=== PATIENT | female | born 1975 | race Caucasian/White ===

== ENCOUNTER 2018-02-23 09:42 | Observation (INO) ==
[2018-02-23] MEDS ORDERED: Isovue-370 500 ML INFUS..BTL IV ONE (10:00)
[2018-02-23 10:20] LABS: Bilirubin,Urine Negative (Negative); Blood,Urine Large (Negative); Clarity,Urine Cloudy (Clear); Color,Urine Yellow (Yellow); Glucose,Urine (UA) Normal (Normal); Ketones,Urine Trace mg/dL (Negative); Leukocyte Esterase,Urine Negative (Negative); Nitrite,Urine Negative (Negative); PH,Urine 6.5 pH Units (5.0-8.0); Protein,Urine 30 mg/dL (Neg-Trace); Specific Gravity,Urine > 1.030 (1.010-1.025); Urobilinogen,Urine Normal (Normal)
[2018-02-23 10:25] LABS: Bacteria,Urine None Seen per hpf (None-Few); Hyaline Casts,Urine None Seen per lpf (None-Few); RBC,Urine TNTC per hpf (0-3); Squamous Epithelial Cell,Urine Many per lpf (None-Few); WBC,Urine 0-3 per hpf (0-3)
[2018-02-23 10:26] LABS: Basophils # 0.1 K/mcL (0.0-0.2); Basophils % 0.9 %; Eosinophils # 0.4 K/mcL (0.0-0.6); Eosinophils % 6.2 %; Hematocrit 40.7 % (35.3-44.9); Hemoglobin 14.1 g/dL (11.5-15.4); Immature Granulocytes % 0.2 % (0-4); Lymphocytes % 30.9 %; Mean Corpuscular HGB Conc 34.6 g/dL (31.6-35.5); Mean Corpuscular Hemoglobin 31.1 pg (28.0-33.3); Mean Corpuscular Volume 89.8 fL (83.0-100.0); Mean Platelet Volume 11.4 fL (9.4-12.4); Monocytes # 0.3 K/mcL (0.0-1.3); Monocytes % 5.1 %; Neutrophils # 3.7 K/mcL (1.6-8.9); Platelet Count 207 K/mcL (140-400); Red Blood Count 4.53 M/mcL (3.82-4.97); Red Cell Distribution Width 11.8 % (11.5-14.5); Segmented Neutrophils % 56.7 %
[2018-02-23 10:51] LABS: Alanine Aminotransferase 10 Units/L (7-52); Albumin 4.4 g/dL (3.5-5.7); Albumin/Globulin Ratio 2.1 (1.1-2.2); Alkaline Phosphatase 51 Units/L (34-104); Aspartate Amino Transferase 11 Units/L (13-39); BUN/Creatinine Ratio 16 (6-26); Bilirubin,Direct 0.1 mg/dL (0.0-0.2); Bilirubin,Indirect 0.2 mg/dL (0.0-1.2); Bilirubin,Total 0.3 mg/dL (0.3-1.0); Blood Urea Nitrogen 18 mg/dL (6-20); Calcium 8.7 mg/dL (8.6-10.3); Carbon Dioxide 26 mEq/L (23-29); Chloride 108 mEq/L (98-107); Globulin 2.1 g/dL (2.4-3.5); Glucose 95 mg/dL (70-105); Lipase 37 Units/L (11-82); Osmolality,Calculated 290 (280-300); Potassium 3.9 mEq/L (3.5-5.1); Sodium 139 mEq/L (136-145); Total Protein 6.5 g/dL (6.4-8.9); Troponin I < 0.03 ng/mL (< 0.04); eGFR For African Americans > 60 (> 60); eGFR For Non-African Americans 52 (> 60)
[2018-02-23] MEDS ORDERED: *HR* FentaNYL (PF) 100 MCG/2 ML VIAL IVP ONE (12:24)
--- NOTE | 2018-02-23 13:34 | Emergency Department Note ---
Disposition Clinical Impression: Abdominal pain Qualifiers: Abdominal location: right upper quadrant Qualified Code(s): R10.11 - Right upper quadrant pain Disposition: Admitted As Inpatient Condition: Fair Abdominal Pain HPI - General Chief Complaint: ED Abdominal Pain Stated Complaint: ABD pain Time Seen by Provider: 02/23/18 09:54 Source: patient Mode of arrival: ambulatory Limitations: no limitations Nursing Notes Reviewed: Yes Vital Signs Reviewed: Yes - History of Present Illness HPI Narrative: 43-year-old female presents emergency Department with concerns of right upper quadrant abdominal pain. Patient states pain in the right upper quadrant started within the past 24 hours and has progressively worsened. Patient has a history of cholelithiasis however she has not had acute cholecystitis in the past. Patient denies vomiting or diarrhea. Pain Scale: 7 - Related Data Home Medications Medication Instructions Recorded Confirmed No Known Home Drugs 02/23/18 02/23/18 Allergies Allergy/AdvReac Type Severity Reaction Status Date / Time No Known Allergies Allergy Verified 02/23/18 09:52 All systems ED: reviewed and negative except as stated. Review of Systems: As Per HPI Abdominal Pain PMH - Past Medical History Medical history: Reports: other Female Surgical History: Reports: other RECRUITER MANAGER history: Reports: no RECRUITER MANAGER history Psychiatric history: Reports: no psych history - Social History Smoking status: Current every day smoker Alcohol use: Reports: none Drug use: Reports: none Physical Exam General: Alert and in no acute distress Skin: Warm, dry, intact Head: Normocephalic and atraumatic Neck: Supple, trachea midline and no tenderness Cardiovascular: RRR, no murmur, normal perfusion Respiratory: CTAB, no wheezing, cough, or respiratory distress Musculoskeletal: Normal strength, no tenderness, swelling or deformity GI: Soft, tenderness to palpation to right upper quadrant without evidence of rigidity or guarding. nondistended. Bowel sounds present Neuro: A&O to person, place, time and situation. No focal deficits noted on exam Psychiatric: cooperative and appropriate mood and affect. - General Limitations: no limitations General appearance: alert, in no apparent distress Course Vital Signs Temperature 97.9 F 02/23/18 09:49 Pulse Rate 67 02/23/18 09:49 Respiratory Rate 16 02/23/18 09:49 Blood Pressure 131/70 02/23/18 09:49 O2 Sat by Pulse Oximetry 98 02/23/18 09:49 Temperature 97.9 F 02/23/18 15:44 Pulse Rate 55 02/23/18 15:44 Respiratory Rate 15 02/23/18 15:44 Blood Pressure 110/66 02/23/18 15:44 O2 Sat by Pulse Oximetry 98 02/23/18 15:44 Oxygen Delivery Oxygen Delivery Room Air Abdominal Pain - MDM Narrative Medical decision making narrative: CT of the abdomen and pelvis showed possible pericholecystic fluid. Radiologist recommends HIDA scan. Patient was evaluated by the surgical nurse practitioner who then spoke with the attending. They requested a HIDA scan be performed prior to further surgical evaluation. I am unable to obtain a HIDA scan immediately in the emergency department. Patient will be admitted to the hospital for pain control and further evaluation of her abdominal pain. - Medical Records Medical records reviewed: Yes I reviewed the patient's medical records. - Lab Data Lab results reviewed: Yes I reviewed the patient's lab results. Result diagrams: 02/23/18 10:13 02/23/18 10:13 Lab Results 02/23/18 02/23/18 02/23/18 Range/Units 09:52 10:02 10:13 WBC 6.5 (4.3-11.1) K/mcL RBC 4.53 (3.82-4.97) M/mcL Hgb 14.1 (11.5-15.4) g/dL Hct 40.7 (35.3-44.9) % MCV 89.8 (83.0-100.0) fL MCH 31.1 (28.0-33.3) pg MCHC 34.6 (31.6-35.5) g/dL RDW 11.8 (11.5-14.5) % Plt Count 207 (140-400) K/mcL MPV 11.4 (9.4-12.4) fL Immature Gran % 0.2 (0-4) % Seg Neutrophils % 56.7 % Lymphocytes % 30.9 % Monocytes % 5.1 % Eosinophils % 6.2 % Basophils % 0.9 % Neutrophils # 3.7 (1.6-8.9) K/mcL Lymphocytes # 2.0 (0.6-4.6) K/mcL Monocytes # 0.3 (0.0-1.3) K/mcL Eosinophils # 0.4 (0.0-0.6) K/mcL Basophils # 0.1 (0.0-0.2) K/mcL Sodium (136-145) mEq/L Potassium (3.5-5.1) mEq/L Chloride (98-107) mEq/L Carbon Dioxide (23-29) mEq/L BUN (6-20) mg/dL Creatinine (0.60-1.20) mg/dL Est GFR ( Amer) (> 60) Est GFR (Non-Af Amer) (> 60) BUN/Creatinine Ratio (6-26) Glucose (70-105) mg/dL Calculated Osmolality (280-300) Lactic Acid (0.5-2.2) mmol/L Calcium (8.6-10.3) mg/dL Total Bilirubin (0.3-1.0) mg/dL Direct Bilirubin (0.0-0.2) mg/dL Indirect Bilirubin (0.0-1.2) mg/dL AST (13-39) Units/L ALT (7-52) Units/L Alkaline Phosphatase (34-104) Units/L Troponin I (< 0.04) ng/mL Serum Total Protein (6.4-8.9) g/dL Albumin (3.5-5.7) g/dL Globulin (2.4-3.5) g/dL Albumin/Globulin Ratio (1.1-2.2) Lipase (11-82) Units/L Urine Color Yellow (Yellow) Urine Clarity Cloudy A (Clear) Urine pH 6.5 (5.0-8.0) pH Units Ur Specific [place] > 1.030 H (1.010-1.025) Urine Protein 30 H (Neg-Trace) mg/dL Urine Glucose (UA) Normal (Normal) mg/dL Urine Ketones Trace H (Negative) mg/dL Urine Blood Large H (Negative) Urine Nitrite Negative (Negative) Urine Bilirubin Negative (Negative) Urine Urobilinogen Normal (Normal) mg/dL Ur Leukocyte Esterase Negative (Negative) Urine Microscopic RBC TNTC H (0-3) per hpf Urine Microscopic WBC 0-3 (0-3) per hpf Ur Squamous Epith Cells Many H (None-Few) per lpf Urine Bacteria None Seen (None-Few) per hpf Hyaline Casts None Seen (None-Few) per lpf Ur Culture Indicated? NO (NO) Urine Test Negative (Negative) 02/23/18 02/23/18 Range/Units 10:13 10:17 WBC (4.3-11.1) K/mcL RBC (3.82-4.97) M/mcL Hgb (11.5-15.4) g/dL Hct (35.3-44.9) % MCV (83.0-100.0) fL MCH (28.0-33.3) pg MCHC (31.6-35.5) g/dL RDW (11.5-14.5) % Plt Count (140-400) K/mcL MPV (9.4-12.4) fL Immature Gran % (0-4) % Seg Neutrophils % % Lymphocytes % % Monocytes % % Eosinophils % % Basophils % % Neutrophils # (1.6-8.9) K/mcL Lymphocytes # (0.6-4.6) K/mcL Monocytes # (0.0-1.3) K/mcL Eosinophils # (0.0-0.6) K/mcL Basophils # (0.0-0.2) K/mcL Sodium 139 (136-145) mEq/L Potassium 3.9 (3.5-5.1) mEq/L Chloride 108 H (98-107) mEq/L Carbon Dioxide 26 (23-29) mEq/L BUN 18 (6-20) mg/dL Creatinine 1.15 (0.60-1.20) mg/dL Est GFR ( Amer) > 60 (> 60) Est GFR (Non-Af Amer) 52 L (> 60) BUN/Creatinine Ratio 16 (6-26) Glucose 95 (70-105) mg/dL Calculated Osmolality 290 (280-300) Lactic Acid 0.9 (0.5-2.2) mmol/L Calcium 8.7 (8.6-10.3) mg/dL Total Bilirubin 0.3 (0.3-1.0) mg/dL Direct Bilirubin 0.1 (0.0-0.2) mg/dL Indirect Bilirubin 0.2 (0.0-1.2) mg/dL AST 11 L (13-39) Units/L ALT 10 (7-52) Units/L Alkaline Phosphatase 51 (34-104) Units/L Troponin I < 0.03 (< 0.04) ng/mL Serum Total Protein 6.5 (6.4-8.9) g/dL Albumin 4.4 (3.5-5.7) g/dL Globulin 2.1 L (2.4-3.5) g/dL Albumin/Globulin Ratio 2.1 (1.1-2.2) Lipase 37 (11-82) Units/L Urine Color (Yellow) Urine Clarity (Clear) Urine pH (5.0-8.0) pH Units Ur Specific [place] (1.010-1.025) Urine Protein (Neg-Trace) mg/dL Urine Glucose (UA) (Normal) mg/dL Urine Ketones (Negative) mg/dL Urine Blood (Negative) Urine Nitrite (Negative) Urine Bilirubin (Negative) Urine Urobilinogen (Normal) mg/dL Ur Leukocyte Esterase (Negative) Urine Microscopic RBC (0-3) per hpf Urine Microscopic WBC (0-3) per hpf Ur Squamous Epith Cells (None-Few) per lpf Urine Bacteria (None-Few) per hpf Hyaline Casts (None-Few) per lpf Ur Culture Indicated? (NO) Urine Test (Negative) - Radiology Data Radiology results reviewed: Yes I reviewed the patient's radiology results.
[2018-02-23] MEDS ORDERED: Ondansetron 4 MG/2 ML VIAL IVP PRN (13:55)
[2018-02-23] MEDS ORDERED: Naloxone 0.4 MG/ML INJ IVP PRN (13:55)
[2018-02-23] MEDS ORDERED: Ipratropium/Albuterol Neb 3 ML IH PRN (14:02)
--- NOTE | 2018-02-23 14:07 | Internal Med History&Physical ---
Date of Encounter: 02/23/18 Time of Encounter: 14:04 Internal Medicine - H&P: HPI Chief complaint: Abdominal pain Admitted From: Emergency Dept History of present illness: Ms. Andre is a 43 year old female with a past medical history of tobacco use and cholelithiasis who came to emergency room complaining of right upper quadrant pain that has been going on and off for the past weeks but worse in the past 24 hours accompanied by nausea. She has been having also chronic diarrhea on and off, complaining of lower abdominal cramps and stabbing-like type of pain in the right upper quadrant radiating to the back 7 out of 10 in intensity the decreased down to 1 out of 10 after receiving fentanyl at the ER. CT scan of the abdomen was performed showing periportal edema, cholelithiasis and pericholecystic fluid with possible cholecystitis. There is also a liver lesion. The patient appears very dehydrated and has been complaining of chills , she does not know whether she has been having fevers or not. Denies any headache, no chest pain or shortness of breath. ER has ordered a HIDA scan and an ultrasound of the abdomen. Past Med Surg Social Fam HX - Past Medical History Medical history: other (Cholelithiasis and tobacco abuse) Psychiatric history: no psych history - Past Surgical History Surgical History: other (LEEP procedure) - Social History Smoking Status: Current every day smoker Packs per day: Half pack per day but used to smoke more in the past Smokeless Tobacco Status: No Alcohol use: none Drug use: none - Additional Family History Additional family history: Denies any family history Internal Medicine - H&P: Meds No Known Home Drugs 02/23/18 [History] 3 Allergy/AdvReac Type Severity Reaction Status Date / Time No Known Allergies Allergy Verified 02/23/18 09:52 All Systems PM: A 10-system review of systems was performed and is negative for pertinent findings except as documented above in the HPI. Review of systems: Continues to have abdominal discomfort, no dysuria, no chest pain or shortness of breath, other systems out of the 10 reviewed were negative - Constitutional Vitals: Temp Pulse Resp BP Pulse Ox 97.9 F 48 16 125/76 100 02/23/18 10:02 02/23/18 12:39 02/23/18 12:39 02/23/18 12:39 02/23/18 12:39 General appearance: Present: A&O X 3 - Head Head exam: Present: atraumatic, normocephalic - Eye Eye exam: Present: PERRL, conjuntiva pink, sclera anicteric Pupils: Present: PERRL - Neck Neck exam general surgery: Present: supple, trachea midline. Absent: lymphadenopathy Additional comments: Dry mucosa - Respiratory Respiratory exam: Present: CTAB, rales (Diffuse rhonchi). Absent: accessory muscle use, rhonchi, wheezes - Cardiovascular Cardiovascular exam: Present: RRR, +S1, +S2. Absent: diastolic murmur, gallop, rubs, systolic murmur - GI/Abdominal GI/Abdominal exam: Present: normal bowel sounds, soft, tenderness, no peritoneal signs. Absent: distended Additional comments: Right upper quadrant tenderness, Townsend's sign is positive - Extremities Exam Extremities exam: Present: warm, radial pulses palpable and symmetrical. Absent : calf tenderness, cyanotic, pedal edema - Neurological Exam Neurological exam: Present: CN II-XII intact, oriented X3, no focal deficits. Absent: pronater drift, facial droop, speech deficit - Skin Skin exam: Present: dry, intact Internal Med - H&P Results - Labs CBC & Chem 7: 02/23/18 10:13 02/23/18 10:13 Labs: Short CBC 02/23/18 Range/Units 10:13 WBC 6.5 (4.3-11.1) K/mcL Hgb 14.1 (11.5-15.4) g/dL Hct 40.7 (35.3-44.9) % Plt Count 207 (140-400) K/mcL Neutrophils # 3.7 (1.6-8.9) K/mcL BMP 02/23/18 10:13 Sodium 139 Potassium 3.9 Chloride 108 H Carbon Dioxide 26 BUN 18 Creatinine 1.15 Glucose 95 Calcium 8.7 Cardiac Enzymes 02/23/18 Range/Units 10:13 Troponin I < 0.03 (< 0.04) ng/mL Liver Function 02/23/18 Range/Units 10:13 Total Bilirubin 0.3 (0.3-1.0) mg/dL Direct Bilirubin 0.1 (0.0-0.2) mg/dL AST 11 L (13-39) Units/L ALT 10 (7-52) Units/L Alkaline Phosphatase 51 (34-104) Units/L Albumin 4.4 (3.5-5.7) g/dL Urine 02/23/18 Range/Units 09:52 Urine Color Yellow (Yellow) Urine Clarity Cloudy A (Clear) Urine pH 6.5 (5.0-8.0) pH Units Ur Specific [place] > 1.030 H (1.010-1.025) Urine Protein 30 H (Neg-Trace) mg/dL Urine Glucose (UA) Normal (Normal) mg/dL - Impressions ITS Impressions Abdomen/Pelvis CT 02/23/18 10:00 IMPRESSION: 1. Periportal edema with cholelithiasis and question pericholecystic fluid. I do raise the possibility of acute cholecystitis. I would recommend further evaluation with a nuclear medicine HIDA scan to evaluate for cystic duct patency. 2. No significant change low-attenuation lesion within the right lobe of the liver. This corresponds to a hyperechoic lesion noted on the prior ultrasound and likely represents a hemangioma versus adenoma. Malignancy is less likely but cannot totally be excluded. An MRI of the liver could be performed for further evaluation. D/ / Mickey Enciso MD / Mickey Enciso MD Interpreting Provider: Mickey Enciso MD - Assessment and plan (1) Acute cholecystitis Current Visit: Yes Status: Acute Assessment and plan: Intractable right upper quadrant pain possibly secondary to acute cholecystitis , liver lesion as incidental finding Nothing by mouth HIDA scan and ultrasound ordered by the ER Rocephin and Flagyl IV, may discontinue antibiotics if no infection is confirmed Consider surgery consult depending on findings Zofran as needed, pain control May order MRCP Protonix IV for GI prophylaxis and subcutaneous tenderness heparin for DVT prophylaxis. The patient will be admitted for observation. Full code. Time spent on this admission 40 minutes (2) Dehydration Current Visit: Yes Status: Acute Assessment and plan: IV fluids (3) Tobacco abuse Current Visit: Yes Status: Acute Assessment and plan: Smoking cessation counseling given for 5 min , nicotine patch (4) Intractable abdominal pain Current Visit: Yes Status: Acute (5) Chronic diarrhea Current Visit: Yes Status: Acute Assessment and plan: Consider sending a GI panel if worse - Time Spent With Patient Total time spent is greater than 50% in coordination of care (as documented) at patient's floor/unit and/or counseling patient:
[2018-02-23] MEDS: D5% in 0.45% NACL 1,000 ML IVC SCH (17:52)
[2018-02-23] MEDS: cefTRIAXone 1,000 MG in 0.9 % Sodium Chloride Mini Bag 100 ML IVPB SCH (17:52)
[2018-02-23] MEDS: OXYCODONE Oral CONC 10 MG/0.5 ML ORAL.SYG SL PRN ×2 (17:53→22:13)
[2018-02-23] MEDS: *HR* Heparin 5,000 UNIT/ML VIAL SQ SCH (17:53)
[2018-02-23] MEDS: Nicotine 21 MG PATCH.TD24 TD SCH (17:54)
[2018-02-23] MEDS: MetroNIDAZOLE 500 MG/100 ML 500 MG/100 ML BAG IVPB SCH (17:56)
[2018-02-24] MEDS: MetroNIDAZOLE 500 MG/100 ML 500 MG/100 ML BAG IVPB SCH ×3 (00:33→23:42)
[2018-02-24] MEDS: D5% in 0.45% NACL 1,000 ML IVC SCH (00:44)
[2018-02-24] MEDS: OXYCODONE Oral CONC 10 MG/0.5 ML ORAL.SYG SL PRN ×4 (04:46→23:41)
[2018-02-24] MEDS: *HR* Heparin 5,000 UNIT/ML VIAL SQ SCH ×2 (05:20→18:17)
[2018-02-24 06:53] LABS: Hemoglobin 12.6 g/dL (11.5-15.4); Mean Corpuscular HGB Conc 34.1 g/dL (31.6-35.5); Mean Corpuscular Hemoglobin 30.7 pg (28.0-33.3); Mean Corpuscular Volume 90.2 fL (83.0-100.0); Platelet Count 146 K/mcL (140-400); Red Cell Distribution Width 11.7 % (11.5-14.5)
[2018-02-24 07:00] LABS: BUN/Creatinine Ratio 17 (6-26); Blood Urea Nitrogen 12 mg/dL (6-20); Calcium 8.1 mg/dL (8.6-10.3); Carbon Dioxide 26 mEq/L (23-29); Chloride 110 mEq/L (98-107); Glucose 120 mg/dL (70-105); Osmolality,Calculated 289 (280-300); Potassium 3.8 mEq/L (3.5-5.1); Sodium 139 mEq/L (136-145); eGFR For African Americans > 60 (> 60); eGFR For Non-African Americans > 60 (> 60)
--- NOTE | 2018-02-24 08:18 | Internal Med Progress Note ---
Date of Encounter: 02/24/18 Time of Encounter: 08:00 - Assessment and plan (1) Acute cholecystitis Current Visit: Yes Status: Acute Assessment and plan: Cancel HIDA scan, at least for now. Patient has symptomatic cholelithiasis plus minus cholecystitis. She is nontoxic. No evidence of acute infection. She is day 2 IV Rocephin and Flagyl. Coninue for now pending surg eval. Suspect she needs a cholecystectomy. Not convinced a HIDA scan would influence this decision. I discussed the case with Dr. Madrid in general surgery who agrees with canceling HIDA scan. She will remain nothing by mouth. General surgery consult ordered. Await their input. (2) Dehydration Current Visit: Yes Status: Acute Assessment and plan: IV fluids (3) Tobacco abuse Current Visit: Yes Status: Acute Assessment and plan: Smoking cessation counseling given for 5 min , nicotine patch (4) Intractable abdominal pain Current Visit: Yes Status: Acute (5) Chronic diarrhea Current Visit: Yes Status: Acute Assessment and plan: Consider sending a GI panel if worse - Time Spent With Patient Total time spent is greater than 50% in coordination of care (as documented) at patient's floor/unit and/or counseling patient: 25 - 35 minutes - Subjective Interval history: 43-year-old female with a past medical history of cholelithiasis comes into the emergency room complaining of right upper quadrant pain, on and off for the last week or so but much worse over the last day, associated with nausea. No fevers. She also states that over the last few months she has had vague left upper quadrant pain anytime she eats ice cream. She also has had lower abdominal cramping as well as on-and-off chronic diarrhea. She presented to emergency room where a CT showed cholelithiasis with periportal edema and pericholecystic fluid. He was afebrile. She was tender in the right upper quadrant but nontoxic appearing. White blood cell count was 6.5. Liver enzymes were normal, alkaline phosphatase, bilirubin, lactic acid all normal. She was admitted admitted for further workup and evaluation - Constitutional Vitals: Temp Pulse Resp BP Pulse Ox 98 F 50 14 112/69 98 02/24/18 07:13 02/24/18 07:13 02/24/18 07:13 02/24/18 07:13 02/24/18 07:13 General appearance: Present: A&O X 3 - Head Head exam: Present: atraumatic, normocephalic - Eye Eye exam: Present: PERRL, conjuntiva pink, sclera anicteric Pupils: Present: PERRL - Neck Neck exam general surgery: Present: supple, trachea midline. Absent: lymphadenopathy - Respiratory Respiratory exam: Present: CTAB. Absent: accessory muscle use, rales, rhonchi, wheezes - Cardiovascular Cardiovascular exam: Present: RRR, +S1, +S2. Absent: diastolic murmur, gallop, rubs, systolic murmur - GI/Abdominal GI/Abdominal exam: Present: normal bowel sounds, soft, tenderness (Right upper quadrant tenderness to palpation), no peritoneal signs. Absent: distended - Extremities Exam Extremities exam: Present: warm, radial pulses palpable and symmetrical. Absent : calf tenderness, cyanotic, pedal edema - Neurological Exam Neurological exam: Present: CN II-XII intact, oriented X3, no focal deficits. Absent: pronater drift, facial droop, speech deficit Internal Medicine: Result - Labs CBC & Chem 7: 02/24/18 06:25 02/24/18 06:25 Labs: Short CBC 02/24/18 Range/Units 06:25 WBC 5.3 (4.3-11.1) K/mcL Hgb 12.6 D (11.5-15.4) g/dL Hct 37.0 (35.3-44.9) % Plt Count 146 (140-400) K/mcL [facility] 02/24/18 06:25 Sodium 139 Potassium 3.8 Chloride 110 H Carbon Dioxide 26 BUN 12 Creatinine 0.72 Glucose 120 H Calcium 8.1 L Consult Discharge Plan - Plan Referrals: NONE,PCP [Primary Care Provider] -
[2018-02-24] MEDS ORDERED: 0.9 % Sodium Chloride w KCl 20 MEQ/1,000 ML MLS IVC SCH (08:30)
[2018-02-24] MEDS: Nicotine 21 MG PATCH.TD24 TD SCH (09:01)
[2018-02-24] MEDS: cefTRIAXone 1,000 MG in 0.9 % Sodium Chloride Mini Bag 100 ML IVPB SCH (09:01)
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
--- NOTE | 2018-02-24 14:46 | Anesthesia Evaluation PreOp ---
Date of Encounter: 02/24/18 Time of Encounter: 14:45 - Past History Planned Operation: Lap cholecystectomy with gram Cardiac History: Denies any Significant Hx Pulmonary History: Smoker [employer] History: Denies Any Significant HX Other Medical History: Denies Any Significant HX Anesthesia History: No Prior Anesthetic Complications, Past Anesthesia (knee scope, LEEP) Test: Negative (02/23/18) Alcohol Use: none Drug use: none Medications and Allergies No Known Home Drugs 02/23/18 [History] 3 Allergy/AdvReac Type Severity Reaction Status Date / Time No Known Allergies Allergy Verified 02/23/18 09:52 - Meds/Allergy Pre-op Review Medications Reviewed: Yes Allergies Reviewed: Yes Beta Blockers on Current Med List: No Anesthesia Results - Labs 02/24/18 06:25 02/24/18 06:25 Laboratory Tests 02/23/18 10:02 Urine Test Negative Anesthesia Exam Vital Signs/O2 Sat, Most Current Temp Pulse Resp BP Pulse Ox 98 F 47 14 112/68 98 02/24/18 11:07 02/24/18 11:07 02/24/18 11:07 02/24/18 11:07 02/24/18 11:07 Height: 67" Weight: 135lbs NPO (# of Hours): >8 Pain Scale: 0 Pain Scale Used: Numeric (1 - 10) - HEENT Pupil (Motor): Pupils equal, EOMI Mallampati: II Teeth: Normal Oral Opening: Greater than 3 - [employer] LOC: Oriented [employer] Motor: Normal RUE, Normal LUE, Normal RLE, Normal LLE, Normal Face [employer] Sensory: Normal: RUE, LUE, RLE, LLE, Face - Cardiac Rhythm: Regular - Pulmonary Breath Sounds: bilateral Clear Respiratory Effort: Symmetrical Anesthesia Assess/Plan ASA Score: 2 Modified Juan Antonio Scale for Level of Consciousness: Cooperative, oriented, and tranquil Anesthetic Plan: General Monitoring Plan: Standard Monitors Recovery Plan: PACU
[2018-02-24] MEDS ORDERED: *HR* Rocuronium Bromide 50 MG/5 ML VIAL ONE (15:04)
[2018-02-24] MEDS ORDERED: Dexamethasone 4 MG/ML VIAL ONE (15:04)
[2018-02-24] MEDS ORDERED: Lidocaine -MPF 2% 2 ML VIAL ONE (15:04)
[2018-02-24] MEDS ORDERED: Ondansetron 4 MG/2 ML VIAL ONE (15:04)
[2018-02-24] MEDS ORDERED: Ketorolac 30 MG/ML VIAL ONE ×2 (15:04→15:59)
[2018-02-24] MEDS ORDERED: *HR* FentaNYL (PF) 100 MCG/2 ML VIAL ONE (15:05)
[2018-02-24] MEDS ORDERED: *HR* Propofol 200 MG/20 ML VIAL IVP ONE (15:05)
[2018-02-24] MEDS ORDERED: *HR* Midazolam HCl 2 MG/2 ML VIAL ONE (15:05)
[2018-02-24] MEDS ORDERED: Albuterol 2.5 MG/3 ML NEBULIZER IH ONE (15:05)
[2018-02-24] MEDS ORDERED: Lidocaine -MPF 4% 5 ML AMPUL ONE (15:11)
[2018-02-24] MEDS ORDERED: Acetaminophen IV 1,000 MG/100 ML INFUS..BTL ONE (15:16)
[2018-02-24] MEDS ORDERED: Isovue-300 50 ML VIAL IVP ONE (15:23)
[2018-02-24] MEDS ORDERED: CefOXitin 1,000 MG VIAL ONE (15:23)
[2018-02-24] MEDS ORDERED: CefOXitin 2,000 MG VIAL ONE (15:57)
[2018-02-24] MEDS ORDERED: Neostigmine Methylsulfate 3 MG/3 ML SYRINGE ONE (16:07)
[2018-02-24] MEDS ORDERED: *HR* Meperidine 25 MG/ML SYRINGE IVP PRN ×2 (16:12→17:34)
[2018-02-24] MEDS ORDERED: Albuterol 2.5 MG/3 ML NEBULIZER IH PRN ×2 (16:12→17:34)
[2018-02-24] MEDS ORDERED: *HR* Promethazine 25 MG/ML VIAL IVP PRN ×2 (16:12→17:34)
[2018-02-24] MEDS ORDERED: MORPHINE SUL Oral CONC 10 MG/0.5 ML ORAL.SYG SL PRN ×2 (16:12→17:34)
--- NOTE | 2018-02-24 16:40 | Operative Note ---
Date of procedure: 02/24/18 Pre-op diagnosis: Cholelithiasis and acute cholecystitis Post-op diagnosis: same Procedure: Laparoscopic cholecystectomy, cholangiogram Anesthesia: JESUS Surgeon: Yovanny Madrid Was there an clinical services assistant present: Yes Chicken Raiser: Gisela Hassan Estimated blood loss (cc): 20 Specimen: Gallbladder and contents Condition: stable Disposition: PACU Procedure in Detail: Laparoscopic cholecystectomy and intraoperative cholangiogram Operative procedure after informed consent and appropriate patient identification and timeout the patient was taken to the major operating suite and placed supine position given adequate general endotracheal anesthesia the abdomen is prepped and draped in sterile fashion utilizing ChloraPrep standard draping techniques timeout was taken patient is identified. I made a vertical midline incision below the umbilicus dissected down to level of fascia there are 2 traction stitches placed in the abdominal cavity was entered visually. A Evans trocar was placed in the abdomen and the abdomen was insufflated to 15 mmHg pressure CO2 the gallbladder was visualized. A placement 11 port in the subxiphoid area and 2 5 mm ports in the subcostal area. The gallbladder was obstructed and acutely inflamed. There was edema at all levels of the tissue around the gallbladder. There is no visible pus. The gallbladder was grasped and elevated. A variety of blunt and sharp dissection techniques were used to isolate the cystic duct and cystic artery. The cystic artery was controlled with 2 surgical clips proximally and one distally and it was divided I placed a surgical clip on the neck the gallbladder and obtained an intraoperative cholangiogram using 10 mL of Isovue. Intraoperative cholangiogram was normal. The cholangiocatheter was removed and the cystic duct was controlled with 2 surgical clips proximally and was divided the gallbladder was removed from the gallbladder fossae using electrocautery. The gallbladder was removed through the #11 port site using a specimen bag. I replaced the #11 port and irrigated with copious amounts of antibiotic containing solution. There is no evidence of bleeding or bile leak. All trochars were removed. Fascia was closed with 0 Vicryl skin with 2-0 and 4-0 Vicryl she tolerated the procedure well and was transferred to recovery in stable condition
[2018-02-24] MEDS: *HR* FentaNYL (PF) 100 MCG/2 ML VIAL IVP PRN ×2 (16:59→17:07)
--- NOTE | 2018-02-24 17:17 | Anesthesia Evaluation Post Op ---
Date of Encounter: 02/24/18 Time of Encounter: 17:16 - Vital Signs Vital Signs: Vital Signs/O2 Sat, Most Current Temp Pulse Resp BP Pulse Ox 97.2 F L 60 14 135/71 99 02/24/18 16:47 02/24/18 17:07 02/24/18 17:07 02/24/18 17:07 02/24/18 17:07 - Lungs Lungs: Clear Ascult./Percussion - Airway Airway: Non-obstructed - Cardiovascular Regular Rate - Mental Status Mental Status: Alert & Oriented, Answers Appropriately - Pain Pain Scale used: Numeric (1 - 10) - Nausea Vomiting Nausea Vomiting: Not Present - Hydration Hydration: NPO - Discharge PostOp Status: Transfer Patient to floor
[2018-02-24] MEDS ORDERED: Ondansetron 4 MG/2 ML VIAL IVP PRN (17:34)
[2018-02-24] MEDS ORDERED: *HR* FentaNYL (PF) 100 MCG/2 ML VIAL IVP PRN (17:34)
[2018-02-24] MEDS ORDERED: OXYCODONE Oral CONC 10 MG/0.5 ML ORAL.SYG SL PRN (17:34)
[2018-02-24] MEDS ORDERED: Ipratropium/Albuterol Neb 3 ML IH PRN (17:34)
[2018-02-24] MEDS ORDERED: Naloxone 0.4 MG/ML INJ IVP PRN (17:34)
[2018-02-24] MEDS: 0.9 % Sodium Chloride w KCl 20 MEQ/1,000 ML MLS IVC SCH (18:09)
[2018-02-24] MEDS: cefOXitin 2,000 MG in Water for inj. (sterile) 20 ML 20 ML IVP SCH (23:42)
[2018-02-25] MEDS: OXYCODONE Oral CONC 10 MG/0.5 ML ORAL.SYG SL PRN ×3 (03:39→12:37)
[2018-02-25] MEDS: 0.9 % Sodium Chloride w KCl 20 MEQ/1,000 ML MLS IVC SCH ×2 (03:41→11:39)
[2018-02-25] MEDS: *HR* Heparin 5,000 UNIT/ML VIAL SQ SCH (05:04)
[2018-02-25 06:38] LABS: Basophils % 0.2 %; Hematocrit 36.5 % (35.3-44.9); Hemoglobin 12.3 g/dL (11.5-15.4); Immature Granulocytes % 0.2 % (0-4); Lymphocytes # 1.1 K/mcL (0.6-4.6); Lymphocytes % 13.7 %; Mean Corpuscular HGB Conc 33.7 g/dL (31.6-35.5); Mean Corpuscular Hemoglobin 30.1 pg (28.0-33.3); Mean Corpuscular Volume 89.2 fL (83.0-100.0); Mean Platelet Volume 11.7 fL (9.4-12.4); Monocytes # 0.4 K/mcL (0.0-1.3); Monocytes % 5.2 %; Neutrophils # 6.7 K/mcL (1.6-8.9); Platelet Count 163 K/mcL (140-400); Red Blood Count 4.09 M/mcL (3.82-4.97); Red Cell Distribution Width 11.5 % (11.5-14.5); Segmented Neutrophils % 80.7 %
[2018-02-25 06:53] LABS: Alanine Aminotransferase 21 Units/L (7-52); Albumin 3.2 g/dL (3.5-5.7); Albumin/Globulin Ratio 1.7 (1.1-2.2); Alkaline Phosphatase 35 Units/L (34-104); Aspartate Amino Transferase 25 Units/L (13-39); BUN/Creatinine Ratio 18 (6-26); Bilirubin,Total 0.6 mg/dL (0.3-1.0); Blood Urea Nitrogen 10 mg/dL (6-20); Calcium 7.8 mg/dL (8.6-10.3); Carbon Dioxide 20 mEq/L (23-29); Chloride 111 mEq/L (98-107); Globulin 1.9 g/dL (2.4-3.5); Glucose 98 mg/dL (70-105); Osmolality,Calculated 285 (280-300); Potassium 4.4 mEq/L (3.5-5.1); Sodium 138 mEq/L (136-145); Total Protein 5.1 g/dL (6.4-8.9); eGFR For African Americans > 60 (> 60); eGFR For Non-African Americans > 60 (> 60)
--- NOTE | 2018-02-25 08:40 | General Surgery Progress Note ---
<Josh Means - Last Filed: 02/25/18 13:50> Date of Encounter: 02/25/18 Time of Encounter: 06:30 - Assessment and Plan (1) Status post cholecystectomy Status: Acute POD#1. Patient has been afebrile overnight. WBC normal today at 8.3. Hgb stable at 12.3. Day 3 of IV Roecephin and Flagyl. Patient started to complain of increased RLQ pain in the morning a few hours after initial examination. She subsequently received some SL oxycodone. Will re-evaluate in the afternoon. Update at 1350: Patient's abdominal pain has improved, although she still continues to have moderate abdominal pain now in the RUQ with deep palpation. She denies any nausea or vomiting. She has been able to ambulate with out pain. Patient is clear for discharge from surgery. (2) Hemangioma of liver Status: Acute 26 mm hemangioma within R hepatic lobe. Subjective Narrative: Patient says her abdominal pain has decreased from yesterday. She rates the pain as a 5/10 in severity. She denies any overnight fever. Denies any nausea or vomiting. Denies any BM, but admits to passing gas. She denies any chest pain or shortness or breath. Update at 0900: Patient c/o increased pain in the RLQ. She was in tears from the pain when examined. Update at 1350: Patient is doing alot better now. Her pain has improved, although now it has migrated up to her RUQ. Objective VITAL SIGNS: Reviewed. See [facility] GENERAL: no apparent distress. HEENT: [Normocephalic, PER, EOMi, oropharynx pink/moist, no JVD noted.] CV: b/l rad pulses 2+, RRR, no murmurs or gallops, no JVD RESPIRATORY: CTAB without wheezes, rales, or rhonchi ABD: soft, minor tenderness with deep palpation of RLQ, no rebound/guarding/ rigidity, no peritoneal signs. Normal bowel sounds. INCISION: clean, dry, intact without purulence/bleeding/edema/rubor/calor EXTREMITY: grossly normal motor function, no pedal edema, peripheral pulses 2+ b /l NEUROLOGIC EXAM: AOx3, obeys commands, no speech deficits. PSYCHIATRIC: normal mood and affect SKIN: no gross lesions, rashes, or skin changes Vital Signs - Last 8 Hours Temp Pulse Resp BP Pulse Ox 02/25/18 07:05 98.1 F 51 16 116/62 96 02/25/18 03:33 98.2 F 62 16 104/56 97 Intake and Output 02/24/18 02/25/18 02/25/18 23:59 07:59 15:59 Intake Total 1110 / 1110 Output Total 520 / 520 400 / 400 Balance -520 / -520 710 / 710 Intake: IV Fluids 1110 / 1110 KCl 20 mEq in 0.9% Sodium 1000 / 1000 Chloride 20 meq In 1,000 ml @ 150 mls/hr IVC .Q6H40M [facility] Rx#: [id number] Mefoxin 2,000 MG In Water for inj. (sterile) 20 ML @ 300 mls/ hr IVP Q8HR [facility] Rx#:[id number] Flagyl Premix 500 MG/100 ML 500 100 / 100 mg In 100 ml @ 100 mls/hr IVPB Q8HR [facility] Rx#:[id number] Oral 0 / 0 Output: Urine 500 / 500 400 / 400 Estimated Blood Loss Other: Weight 69.1 kg Patient Weight 02/25/18 23:59 Weight 69.1 kg - Labs 02/25/18 06:13 02/25/18 06:13 Diabetes panel 02/25/18 Range/Units 06:13 Sodium 138 (136-145) mEq/L Potassium 4.4 (3.5-5.1) mEq/L Chloride 111 H (98-107) mEq/L Carbon Dioxide 20 L (23-29) mEq/L BUN 10 (6-20) mg/dL Creatinine 0.55 L (0.60-1.20) mg/dL Glucose 98 (70-105) mg/dL Calcium 7.8 L (8.6-10.3) mg/dL AST 25 (13-39) Units/L ALT 21 (7-52) Units/L Alkaline Phosphatase 35 (34-104) Units/L Albumin 3.2 L (3.5-5.7) g/dL Calcium panel 02/25/18 Range/Units 06:13 Calcium 7.8 L (8.6-10.3) mg/dL Albumin 3.2 L (3.5-5.7) g/dL Pituitary panel 02/25/18 Range/Units 06:13 Sodium 138 (136-145) mEq/L Potassium 4.4 (3.5-5.1) mEq/L Chloride 111 H (98-107) mEq/L Carbon Dioxide 20 L (23-29) mEq/L BUN 10 (6-20) mg/dL Creatinine 0.55 L (0.60-1.20) mg/dL Glucose 98 (70-105) mg/dL Calcium 7.8 L (8.6-10.3) mg/dL Adrenal panel 02/25/18 Range/Units 06:13 Sodium 138 (136-145) mEq/L Potassium 4.4 (3.5-5.1) mEq/L Chloride 111 H (98-107) mEq/L Carbon Dioxide 20 L (23-29) mEq/L BUN 10 (6-20) mg/dL Creatinine 0.55 L (0.60-1.20) mg/dL Glucose 98 (70-105) mg/dL Calcium 7.8 L (8.6-10.3) mg/dL Total Bilirubin 0.6 (0.3-1.0) mg/dL AST 25 (13-39) Units/L ALT 21 (7-52) Units/L Alkaline Phosphatase 35 (34-104) Units/L Albumin 3.2 L (3.5-5.7) g/dL - VTE Documentation of Mechanical Device: Intermittent pneumatic compression device Consult Discharge Plan - Plan Instructions: Laparoscopic Cholecystectomy (DC) Additional Instructions: You have had a procedure known as a laparoscopic cholecystectomy. A laparoscopic cholecystectomy is a procedure to remove your gallbladder. People who have this procedure usually recover more quickly and have less pain than with open gallbladder surgery (called open cholecystectomy). Many surgeons recommend a low-fat diet, avoiding fried food in particular, for the first month after surgery. You can live a full and healthy life without your gallbladder. This includes eating the foods and doing the things you enjoyed before your gallbladder problems started. Home care Recommendations for home care include the following: Ask someone to drive you to your appointments for the next [address] you are no longer taking pain medicine and are able to step on the brake pedal without hesitation. Wash the skin around your incision daily with mild soap and water. It's OK to shower the day after your surgery. Eat your regular diet. It is galindo to stay away from rich, greasy, or spicy food for a few days. Remember, it takes at least 1 week for you to get most of your strength and energy back. Make an office visit to talk to your healthcare provider if the following symptoms dont go away within a week after your surgery: Fatigue Pain around the incision Diarrhea or constipation Loss of appetite When to call your healthcare provider Call your healthcare provider immediately if you have any of the following: Yellowing of your eyes or skin (jaundice) Chills Fever of 100.4F (38.0C) or higher, or as directed by your healthcare provider Redness, swelling, increasing pain, pus, or a foul smell at the incision site Dark or rust-colored urine Stool that is lm-colored or light in color instead of brown Increasing belly pain Rectal bleeding Leg swelling or shortness of breath Follow-up appointment with Anais Carpio CNP on 03/12/18. Referrals: Anais Carpio CNP [Advanced Practice Nurse] - 03/12/18 9:45 am Prescriptions: Ondansetron ODT [Zofran ODT] 4 mg SL Q6HR PRN #15 tab.rapdis PRN Reason: Nausea Docusate Sodium [Colace] 100 mg PO BID #30 capsule Ibuprofen 800 mg PO Q8H PRN 14 Days #42 tablet PRN Reason: Pain Oxycodone HCl/Acetaminophen [Percocet 5-325 mg Tablet] 1 each PO Q6H PRN 7 Days #28 tablet PRN Reason: Pain <Yovanny Madrid T - Last Filed: 02/26/18 06:57> Date of Encounter: 02/25/18 Objective Intake and Output 02/25/18 02/25/18 02/26/18 15:59 23:59 07:59 Intake Total 1310 / 1310 Output Total 400 / 400 Balance 910 / 910 Intake: IV Fluids 1010 / 1010 KCl 20 mEq in 0.9% Sodium 1000 / 1000 Chloride 20 meq In 1,000 ml @ 150 mls/hr IVC .Q6H40M [facility] Rx#: [id number] Mefoxin 2,000 MG In Water for 10 / 10 inj. (sterile) 20 ML @ 300 mls/ hr IVP Q8HR [facility] Rx#:[id number] Oral 300 / 300 Output: Urine 400 / 400 Other: Meal Lunch - Labs 02/25/18 06:13 02/25/18 06:13 - Attending Attestation I examined this patient and my medical decision-making was reviewed with the Resident Physician. I agree with the documented findings, disposition and treatment plan as described except to the extent set forth below. The patient is seen and evaluated on morning rounds with the resident. She is having some mild right lower quadrant discomfort. This should resolve with appropriate local pain control measures and pain medicine. The amount of pain is not unusual for postoperative day 1. Yovanny Madrid MD FACS
[2018-02-25] MEDS ORDERED: *HR* Morphine 2 MG/ML SYRINGE IVP ONE (08:56)
[2018-02-25] MEDS ORDERED: cefTRIAXone 1,000 MG in Water for inj. (sterile) 20 ML 10 ML IVP SCH (09:00)
[2018-02-25] MEDS ORDERED: Nicotine 21 MG PATCH.TD24 TD SCH (09:00)
[2018-02-25] MEDS: cefOXitin 2,000 MG in Water for inj. (sterile) 20 ML 20 ML IVP SCH (09:11)
[2018-02-25] MEDS: MetroNIDAZOLE 500 MG/100 ML 500 MG/100 ML BAG IVPB SCH (09:12)
[2018-02-25 11:56] VITALS: BP 119/68
--- NOTE | 2018-02-25 15:44 | Discharge Summary ---
Orders not resulted at time of discharge: Pending orders 02/24/18 15:59 Surgical Pathology [PTH] Routine Date of Encounter: 02/25/18 Time of Encounter: 15:00 - Discharge Diagnosis (1) Acute cholecystitis Priority: Primary Status: Acute Assessment and Plan: Cancel HIDA scan, at least for now. Patient has symptomatic cholelithiasis plus minus cholecystitis. She is nontoxic. No evidence of acute infection. She is day 2 IV Rocephin and Flagyl. Coninue for now pending surg eval. Suspect she needs a cholecystectomy. Not convinced a HIDA scan would influence this decision. I discussed the case with Dr. Madrid in general surgery who agrees with canceling HIDA scan. She will remain nothing by mouth. General surgery consult ordered. Await their input. 02/25: Postop day #1 uncomplicated laparoscopic cholecystectomy (2) Dehydration Priority: Secondary Status: Acute Assessment and Plan: IV fluids 5: Resolved (3) Tobacco abuse Priority: Secondary Status: Acute Assessment and Plan: Smoking cessation counseling given for 5 min , nicotine patch (4) Intractable abdominal pain Priority: Primary Status: Acute (5) Chronic diarrhea Priority: Secondary Status: Acute Assessment and Plan: Consider sending a GI panel if worse 02/25: Resolved while in hospital. Follow-up with primary care provider. Hospital course: Ms. Andre is a 43 year old female admitted to the hospital for symptomatic cholelithiasis. Pt underwent laparoscopic cholecystectomy on February 24, uncomplicated. On hospital day #2 she was doing well and deemed stable for discharge. She had been complaining of intermittent right upper quadrant pain for several months. Patient had some mild postoperative pain but otherwise was doing well. Patient was deemed stable for discharge. Follow-up with Gen Surgery as arranged. She did have issues with what seemed to be chronic diarrhea prior to admission. She did not have any while in the hospital. She will follow-up with her primary care provider if this persists. - Time Spent with Patient Total time spent providing and/or coordinating discharge services: - Discharge Medications Prescriptions: Ondansetron ODT [Zofran ODT] 4 mg SL Q6HR PRN #15 tab.rapdis PRN Reason: Nausea Docusate Sodium [Colace] 100 mg PO BID #30 capsule Ibuprofen 800 mg PO Q8H PRN 14 Days #42 tablet PRN Reason: Pain Oxycodone HCl/Acetaminophen [Percocet 5-325 mg Tablet] 1 each PO Q6H PRN 7 Days #28 tablet PRN Reason: Pain Home Medications: Docusate Sodium [Colace] 100 mg PO BID #30 capsule 02/25/18 [Rx] Ibuprofen 800 mg PO Q8H PRN 14 Days #42 tablet 02/25/18 [Rx] Ondansetron ODT [Zofran ODT] 4 mg SL Q6HR PRN #15 tab.rapdis 02/25/18 [Rx] Oxycodone HCl/Acetaminophen [Percocet 5-325 mg Tablet] 1 each PO Q6H PRN 7 Days #28 tablet 02/25/18 [Rx] Allergies/Adverse Reactions: 3 Allergy/AdvReac Type Severity Reaction Status Date / Time No Known Allergies Allergy Verified 02/23/18 09:52 Date of admission: 02/23/18 14:38 Primary care physician: PCP NONE Consults: 02/24/18 08:24 Consult to Surgery [CONS] Routine Consulting Provider: [facility] Reason for Consult: symptomatic cholelithiasis Time Notified: 08:24 Call Completed: Yes Discharging clinician: Martin Ervin Anticipated date of discharge: 02/25/18 - Constitutional Vitals: Temp Pulse Resp BP Pulse Ox 98.2 F 55 14 119/68 97 02/25/18 11:50 02/25/18 11:50 02/25/18 11:50 02/25/18 11:50 02/25/18 11:50 General appearance: Present: A&O X 3 - Head Head exam: Present: atraumatic, normocephalic - Eye Eye exam: Present: PERRL, conjuntiva pink, sclera anicteric Pupils: Present: PERRL - Neck Neck exam general surgery: Present: supple, trachea midline. Absent: lymphadenopathy - Respiratory Respiratory exam: Present: CTAB. Absent: accessory muscle use, rales, rhonchi, wheezes - Cardiovascular Cardiovascular exam: Present: RRR, +S1, +S2. Absent: diastolic murmur, gallop, rubs, systolic murmur - GI/Abdominal GI/Abdominal exam: Present: normal bowel sounds, soft, tenderness (Right upper quadrant tenderness at operative site), no peritoneal signs. Absent: distended - Extremities Exam Extremities exam: Present: warm, radial pulses palpable and symmetrical. Absent : calf tenderness, cyanotic, pedal edema - Neurological Exam Neurological exam: Present: CN II-XII intact, oriented X3, no focal deficits. Absent: pronater drift, facial droop, speech deficit - Skin Skin exam: Present: dry, intact - Patient Status Disposition: Home, Self-Care Condition: Fair Functional capacity at discharge: independent ambulation Overall status at discharge: patient is progressing back to baseline - Discharge Instructions Instructions: Laparoscopic Cholecystectomy (DC) Follow Up With: Anais Carpio [employer] OPERATOR [Advanced Practice Nurse] - NONE,PCP [Primary Care Provider] - Additional Instructions: You have had a procedure known as a laparoscopic cholecystectomy. A laparoscopic cholecystectomy is a procedure to remove your gallbladder. People who have this procedure usually recover more quickly and have less pain than with open gallbladder surgery (called open cholecystectomy). Many surgeons recommend a low-fat diet, avoiding fried food in particular, for the first month after surgery. You can live a full and healthy life without your gallbladder. This includes eating the foods and doing the things you enjoyed before your gallbladder problems started. Home care Recommendations for home care include the following: Ask someone to drive you to your appointments for the next [address] you are no longer taking pain medicine and are able to step on the brake pedal without hesitation. Wash the skin around your incision daily with mild soap and water. It's OK to shower the day after your surgery. Eat your regular diet. It is galindo to stay away from rich, greasy, or spicy food for a few days. Remember, it takes at least 1 week for you to get most of your strength and energy back. Make an office visit to talk to your healthcare provider if the following symptoms dont go away within a week after your surgery: Fatigue Pain around the incision Diarrhea or constipation Loss of appetite When to call your healthcare provider Call your healthcare provider immediately if you have any of the following: Yellowing of your eyes or skin (jaundice) Chills Fever of 100.4F (38.0C) or higher, or as directed by your healthcare provider Redness, swelling, increasing pain, pus, or a foul smell at the incision site Dark or rust-colored urine Stool that is lm-colored or light in color instead of brown Increasing belly pain Rectal bleeding Leg swelling or shortness of breath Follow-up appointment with Anais Carpio CNP on 03/12/18. - Diet and Activity Activity: increase activity as tolerated Diet: low fat, low cholesterol - VTE Documentation of Mechanical Device: Intermittent pneumatic compression device
== END 2018-02-25 17:21 | disposition home or self-care (01) ==
LOC: EMEROO 09:42 → 3ANU 09:42
PROVIDERS: ADMIT Family Medicine; ATTEND Family Medicine